=== PATIENT | male | born 1980 | race Caucasian/White ===

== ENCOUNTER 2021-06-04 00:14 | Emergency (ER) | payer OTHER ==
[2021-06-04 00:23] VITALS: BP 142/98; PULSE 84; TEMP 98.5; BMI 30.7
== END 2021-06-04 04:39 | disposition home or self-care (01) ==
LOC: JER 00:14
DX: J02.9 Acute pharyngitis, unspecified (principal); Z11.52 Encounter for screening for COVID-19
CPT/HCPCS: 99283-25; C9803; U0003; U0005

== ENCOUNTER 2021-09-21 02:57 | Emergency (ER) | payer OTHER ==
[2021-09-21 03:13] VITALS: BP 145/93; PULSE 76; TEMP 97.6; BMI 29.2
[2021-09-21] MEDS ORDERED: KETOROLAC TROMETHAMINE 30 MG/1 ML VIAL IM ONE (04:13)
[2021-09-21] MEDS ORDERED: ACETAMINOPHEN 500 MG TABLET (FP) PO ONE (04:15)
[2021-09-21] MEDS ORDERED: LIDOCAINE 5% TOPICAL PATCH TP ONE (04:15)
[2021-09-21] MEDS ORDERED: LIDOCAINE 5% TOPICAL PATCH ONE (04:18)
[2021-09-21] MEDS ORDERED: KETOROLAC TROMETHAMINE 30 MG/1 ML VIAL ONE (04:18)
== END 2021-09-21 09:46 | disposition home or self-care (01) ==
LOC: JER 02:57
PROC: 3E0233Z Introduction of Anti-inflammatory into Muscle, Percutaneous Approach (ICD-10-PCS; principal; 2021-09-21)
DX: S39.012A Strain of muscle, fascia and tendon of lower back, initial encounter (principal); M54.50 Low back pain, unspecified; X50.0XXA Overexertion from strenuous movement or load, initial encounter; Y93.F2 Activity, caregiving, lifting
CPT/HCPCS: 72100-TC-FY; 99284-25

== ENCOUNTER 2021-12-25 22:32 | Emergency (ER) | payer OTHER ==
[2021-12-25 22:41] VITALS: BP 143/82; PULSE 78; TEMP 98; BMI 29.9
[2021-12-25] MEDS ORDERED: ASPIRIN 81 MG CHEWABLE TABLETS PO ONE (23:24)
[2021-12-25] MEDS ORDERED: ASPIRIN 81 MG CHEWABLE TABLETS ONE (23:43)
[2021-12-26 00:18] LABS: BASO % 0.6 % (0-2.0); EOS % 2.3 % (0-4.5); HEMATOCRIT 43.9 % (35.4-49); HEMOGLOBIN 15.2 GM/dL (11.7-16.9); MCH 29.8 pg (25.7-33.7); MCHC 34.6 g/dl (32.0-35.9); MEAN CELL VOLUME 86.2 fl (80-96); MEAN PLT VOLUME 7.6 fl (7.5-11.1); MONO % 9.8 % (3.8-10.2); NEUT % 50.3 % (42.8-82.8); PLATELET COUNT 198 10^3/uL (134-434); WHITE BLOOD COUNT 6.6 K/mm3 (4.0-10.0)
[2021-12-26 00:22] LABS: CALCIUM 8.7 mg/dL (8.5-10.1)
[2021-12-26 00:23] LABS: ALBUMIN 3.6 g/dl (3.4-5.0); BLOOD UREA NITROGEN 21.1 mg/dL (7-18); MAGNESIUM 2.3 mg/dL (1.8-2.4)
[2021-12-26 00:26] LABS: CREATININE 1.1 mg/dL (0.55-1.3)
[2021-12-26 00:27] LABS: TOT PROT 6.6 g/dl (6.4-8.2)
[2021-12-26 00:28] LABS: BILIRUBIN,TOTAL 0.5 mg/dL (0.2-1)
== END 2021-12-26 04:13 | disposition home or self-care (01) ==
LOC: JER 22:32
DX: R07.89 Other chest pain (principal)
CPT/HCPCS: 36415; 71275-TC; 80053; 82550; 82553; 83735; 84484; 85025; 93005; 93010; 99284-25